=== PATIENT | male | born 2000 | race Caucasian/White ===

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

== ENCOUNTER 2024-07-06 09:41 | Emergency (ER) | payer OTHER ==
[~2024-07-06] VITALS: Ht 177.8 cm; Wt 81.0 kg
[~2024-07-06 09:41] MED LIST changes: +APRESOLINE50 MG PO; +PEPCID20 MG PO; +RISPERDAL1 M1 PO; +[UNRECOGNIZED DRUG - REMARK]
[2024-07-06 09:59] VITALS: BP 124/74
[2024-07-06 10:00] VITALS: BP 115/72
[2024-07-06 10:22] LABS: BASO% 0.6 % (0-3); EOS% 1.4 % (0-8); HEMATOCRIT 44.3 % (39.0-50.0); HEMOGLOBIN 14.4 g/dl (14.0-18.0); IMMATURE GRANULOCYTES 0.5 % (0.0-5.0); LYMPH% 14.7 % (15-41); MEAN CELL VOLUME 88.2 fL CALC (80.0-100.0); MEAN CORPUSCULAR HGB 28.7 pG CALC (26.0-32.0); MEAN CORPUSCULAR HGB CONC 32.5 g/dL CAL (32.0-36.0); MONO% 8.1 % (2-13); NEUT# 4.92 thou/uL (1.82-7.42); NEUT% 74.7 % (42-76); RED BLOOD COUNT 5.02 mill/uL (4.70-6.10)
[2024-07-06 10:30] VITALS: BP 116/73
[2024-07-06 10:43] LABS: ALBUMIN 4.8 g/dL (3.2-5.0); CREATININE 0.7 mg/dL (0.7-1.3); POTASSIUM 4.6 mmol/l (3.5-5.1); TOTAL PROTEIN 7.4 g/dL (6.3-8.2)
[2024-07-06 10:44] LABS: BILIRUBIN, TOTAL 0.4 mg/dL (0.2-1.3)
[2024-07-06 11:34] VITALS: BP 116/73
== END 2024-07-06 11:44 | disposition home or self-care (01) ==
LOC: ED 09:41
PROVIDERS: Family Medicine
DX: F41.0 Panic disorder [episodic paroxysmal anxiety] (principal); F32.A Depression, unspecified; F42.9 Obsessive-compulsive disorder, unspecified; Z72.0 Tobacco use

== ENCOUNTER 2024-07-15 14:59 | Emergency (ER) | payer OTHER ==
[~2024-07-15] VITALS: Ht 177.8 cm; Wt 82.0 kg
[2024-07-15 15:55] VITALS: BP 134/97
== END 2024-07-15 15:58 | disposition left against medical advice (07) | DRG 951 ==
LOC: ED 14:59 → LWOBS 15:44
DX: Z53.21 Procedure and treatment not carried out due to patient leaving prior to being seen by health care provider (principal)

== ENCOUNTER 2024-08-06 14:13 | Emergency (ER) | payer OTHER ==
[2024-08-06] VITALS (13 sets, daily range): BP systolic 98–148; BP diastolic 45–94
[~2024-08-06] VITALS: Ht 177.8 cm; Wt 79.4 kg
[2024-08-06] MEDS ORDERED: CLONAZEPAM1 M1 PO (14:34)
[2024-08-06] MEDS ORDERED: SODIUM CHLORIDE 0.9% 1,000 ML IV ONE (14:50)
[2024-08-06] MEDS ORDERED: ONDANSETRON HCl 4 MG/2 ML SDV IV ONE (14:50)
[2024-08-06 15:08] LABS: BASO% 0.5 % (0-3); EOS% 1.6 % (0-8); HEMATOCRIT 44.1 % (39.0-50.0); HEMOGLOBIN 14.5 g/dl (14.0-18.0); IMMATURE GRANULOCYTES 0.1 % (0.0-5.0); LYMPH% 20.2 % (15-41); MEAN CELL VOLUME 86.5 fL CALC (80.0-100.0); MEAN CORPUSCULAR HGB 28.4 pG CALC (26.0-32.0); MEAN CORPUSCULAR HGB CONC 32.9 g/dL CAL (32.0-36.0); MONO% 5.4 % (2-13); NEUT# 5.56 thou/uL (1.82-7.42); NEUT% 72.2 % (42-76); RED BLOOD COUNT 5.1 mill/uL (4.70-6.10)
[2024-08-06 15:24] LABS: ALBUMIN 5.1 g/dL (3.2-5.0); ALKALINE PHOSPHATASE 93 u/l (38-126); ANION GAP 15 (6-22 (CALC)); BUN 8 mg/dL (9-20); BUN/CREATININE RATIO 12 (12-20 (CALC)); CARBON DIOXIDE 24 mmol/l (22-30); CHLORIDE 102 mmol/l (95-108); CREATININE 0.7 mg/dL (0.7-1.3); ESTIMATED GFR 134 ML/MIN (>=90 (CALC)); LIPASE 35 u/l (23-300); POTASSIUM 4.1 mmol/l (3.5-5.1); SGOT/AST 31 u/l (17-59); SODIUM 136 mmol/l (137-146); TOTAL PROTEIN 7.9 g/dL (6.3-8.2)
[2024-08-06 15:39] LABS: BILIRUBIN, TOTAL 0.7 mg/dL (0.2-1.3)
[2024-08-06 16:27] LABS: URINE BILIRUBIN - DIPSTICK Negative (NEGATIVE); URINE BLOOD DIPSTICK Negative (NEGATIVE); URINE GLUCOSE - DIPSTICK Negative (NEGATIVE); URINE KETONE Negative (NEGATIVE); URINE LEUK ESTERASE Negative (NEGATIVE); URINE NITRITE - DIPSTICK Negative (Negative); URINE PH 6.5 (4.5-8.0); URINE PROTEIN - DIPSTICK Negative (NEG-TRACE); URINE UROBILINOGEN - DIPSTICK 0.2 E.U./dL (0.2)
[2024-08-06 16:28] LABS: URINE COLOR Straw
== END 2024-08-06 17:41 | disposition home or self-care (01) ==
LOC: ED 14:13
PROVIDERS: Nurse Practitioner
DX: F19.980 Other psychoactive substance use, unspecified with psychoactive substance-induced anxiety disorder (principal); F32.A Depression, unspecified; F17.290 Nicotine dependence, other tobacco product, uncomplicated
CPT/HCPCS: J2405

== ENCOUNTER 2024-10-06 08:49 | Emergency (ER) | payer OTHER ==
[~2024-10-06] VITALS: Ht 177.8 cm; Wt 79.0 kg
[~2024-10-06 08:49] MED LIST changes: +CLONAZEPAM1 M1 PO
[2024-10-06 09:01] VITALS: BP 134/79
[2024-10-06 09:15] VITALS: BP 124/84
[2024-10-06] MEDS ORDERED: Diph, Acellular Pertussis, Tet 0.5 ML/VIAL (Tdap) SDV IM ONE (09:15)
[2024-10-06] MEDS ORDERED: AMOX/K CLAV875 M1 PO (10:18)
[2024-10-06 10:33] VITALS: BP 124/84
== END 2024-10-06 10:33 | disposition home or self-care (01) ==
LOC: ED 08:49
DX: S91.331A Puncture wound without foreign body, right foot, initial encounter (principal); F17.210 Nicotine dependence, cigarettes, uncomplicated; W45.0XXA Nail entering through skin, initial encounter; Y92.007 Garden or yard of unspecified non-institutional (private) residence as the place of occurrence of the external cause
CPT/HCPCS: 90715